=== PATIENT | male | born 1970 | race Caucasian/White ===

== ENCOUNTER 2016-08-17 22:14 | Emergency (ER) | payer SELFPAY ==
[2016-08-18] MEDS ORDERED: ASPIRIN 325 MG TABLET PO ONE (02:03)
[2016-08-18] MEDS ORDERED: ACETAMINOPHEN 325 MG TABLET PO ONE (02:11)
[2016-08-18] MEDS ORDERED: ACETAMINOPHEN 325 MG TABLET ONE (02:14)
[2016-08-18 02:32] LABS: ABSOLUTE LYMPHOCYTES (AUTO) 0.8 10^3/uL (0.5-4.7); BASOPHILS % (AUTO) 0.3 % (0-2); EOSINOPHILS % (AUTO) 0.1 % (0-6); HEMOGLOBIN 15.5 g/dL (13.5-17.0); HGB HCT DIFFERENCE 1.5; MEAN CORPUSCULAR HEMOGLOBIN 31.3 pg (27.0-33.4); MEAN CORPUSCULAR HGB CONC 34.4 g/dL (32.0-36.0); MEAN CORPUSCULAR VOLUME 91 fl (80-97); RED BLOOD COUNT 4.94 10^6/uL (4.35-5.55); RED CELL DISTRIBUTION WIDTH 14.1 % (11.5-14.0); SEGMENTED NEUTROPHILS % (AUTO) 85.6 % (42-78); WHITE BLOOD COUNT 12.8 10^3/uL (4.0-10.5)
[2016-08-18 02:43] LABS: ALANINE AMINOTRANSFERASE 37 U/L (21-72); ALBUMIN 4.4 g/dL (3.5-5.0); ALKALINE PHOSPHATASE 95 U/L (38-126); ANION GAP 12 (5-19); ASPARTATE AMINO TRANSFERASE 21 U/L (17-59); BILIRUBIN,DIRECT 0.2 mg/dL (0.0-0.4); BLOOD UREA NITROGEN 11 mg/dL (7-20); CALCIUM 9.3 mg/dL (8.4-10.2); CARBON DIOXIDE 24 mmol/L (22-30); CHLORIDE 98 mmol/L (98-107); CREATINE KINASE 101 U/L (55-170); CREATININE RESULT 0.85 mg/dL (0.52-1.25); GLUCOSE 108 mg/dL (75-110); POTASSIUM 4.5 mmol/L (3.6-5.0); SODIUM 134.1 mmol/L (137-145); TOTAL PROTEIN 7.3 g/dL (6.3-8.2)
[2016-08-18 02:54] LABS: CREATINE KINASE MB 0.45 ng/mL (<4.55)
[2016-08-18 02:55] LABS: TROPONIN I < 0.012 ng/mL
--- NOTE | 2016-08-18 03:13 | ER Document Report ---
ED General - General Chief Complaint: Cough Stated Complaint: WEAKNESS/COUGH/UNABLE TO STAY AWAKE Time Seen by Provider: 08/18/16 01:53 Notes: Patient is a 46-year-old male comes emergency department for chief complaint of feeling generally worse with weakness, cough, and fever since yesterday. 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 He denies shortness of breath, chest pain, headache, sore throat, abdominal pain, flank pain. He states he feels slightly lightheaded when he stands. Former smoker, history of NV with stents, denies other medical history. Patient does state that he is exposed to his nephew who was recently sick. TRAVEL OUTSIDE OF THE [place] IN LAST 30 DAYS: No - Related Data Allergies/Adverse Reactions: vancomycin [From Vancocin] Allergy (Verified 08/18/16 00:51) Home Medications: Current Home Medications Atorvastatin Calcium 80 mg PO QHS 08/18/16 [History] Lisinopril [Lisinopril] 5 mg PO DAILY 08/18/16 [History] Metoprolol Tartrate [Metoprolol Tartrate] 25 mg PO BID 08/18/16 [History] [place]-3 Fatty Acids/Fish Oil [Fish Oil 300 mg Softgel] 1 cap PO BID 08/18/16 [ History] Omeprazole Magnesium [Prilosec Otc] 20 mg PO DAILY 08/18/16 [History] Ticagrelor [Brilinta 90 mg Tablet] 90 mg PO BID 08/18/16 [History] Past Medical History - General Information source: Patient - Social History Smoking Status: Current Every Day Smoker Smoking Education Provided: Yes - <3 min Drug Abuse: None Lives with: Family Family History: Reviewed & Not Pertinent Patient has suicidal ideation: No Patient has homicidal ideation: No - Past Medical History Cardiac Medical History: Reports: Hx Hypercholesterolemia, Hx Hypertension Renal/ Medical History: Denies: Hx Peritoneal Dialysis GI Medical History: Reports: Hx Gastroesophageal Reflux Disease Past Surgical History: Reports: Hx Cardiac Catheterization - stent, Hx Cardiac Surgery, Hx Orthopedic Surgery - knee Review of Systems - Review of Systems Constitutional: See HPI EENT: No symptoms reported Cardiovascular: No symptoms reported Respiratory: See HPI Gastrointestinal: No symptoms reported Genitourinary: No symptoms reported Male Genitourinary: No symptoms reported Musculoskeletal: No symptoms reported Skin: No symptoms reported Hematologic/Lymphatic: No symptoms reported Neurological/Psychological: No symptoms reported Physical Exam - Vital signs Vitals: Temp Pulse Resp BP Pulse Ox 100.2 F 121 H 18 136/84 H 98 08/17/16 22:49 08/17/16 22:49 08/17/16 22:49 08/17/16 22:49 08/17/16 22:49 Interpretation: Normal - General General appearance: Appears well, Alert - HEENT Head: Normocephalic, Atraumatic Eyes: Normal Extraocular movements intact: Yes Eyelashes: Normal Pupils: PERRL Sinus: Normal Nasal: Normal Mouth/Lips: Normal Mucous membranes: Normal Pharynx: Normal Neck: Normal - Respiratory Respiratory status: No respiratory distress. No: Respiratory distress, Labored , Tachypnea Chest status: Nontender Breath sounds: Normal, Other - Congested sounding cough with a few coarse breath sounds and scattered rhonchi. No: Wheezing Chest palpation: Normal - Cardiovascular Rhythm: Regular, Tachycardia Heart sounds: Normal auscultation, S1 appreciated, S2 appreciated Murmur: No - Abdominal Inspection: Normal Distension: No distension Bowel sounds: Normal Tenderness: Nontender Organomegaly: No organomegaly - Back Back: Normal, Nontender - Extremities General upper extremity: Normal inspection, Nontender, Normal color, Normal ROM , Normal temperature General lower extremity: Normal inspection, Nontender, Normal color, Normal ROM , Normal temperature, Normal weight bearing. No: Sundar's sign - Neurological Neuro grossly intact: Yes Cognition: Normal Orientation: AAOx4 Thierry Coma Scale Eye Opening: Spontaneous [place] Coma Scale Verbal: Oriented Thierry Coma Scale Motor: Obeys Commands [place] Coma Scale Total: 15 Speech: Normal Motor strength normal: LUE, RUE, LLE, RLE Sensory: Normal - Psychological Associated symptoms: Normal affect, Normal mood - Skin Skin Temperature: Warm Skin Moisture: Dry Skin Color: Normal, Flushed Course - Re-evaluation Re-evalutation: Patient febrile, has congested sounding cough, a few scattered rhonchi and coarse breath sounds, clinically he appears to have pneumonia. CBC shows leukocytosis with no bandemia, shows elevation of neutrophils. Chemistry unremarkable, cardiac enzymes negative, EKG with no comparison appears to have right bundle branch block, this was reviewed with Dr. Mishra. Denying any chest pain specifically, just reports cough, fever, lack of energy. He states he feels much better after treatment with Tylenol, fever resolved, tachycardia resolved, vital signs normalized. No tachypnea, no hypoxia, no respiratory distress on exam Chest x-ray with no specific findings. Giving Rocephin, doxycycline, will treat for suspected pneumonia. Patient states he is ready to leave. Discussed treatment at home with antibiotics, follow-up, return precautions, patient states satisfaction and agreement. - Vital Signs Vital signs: Temp Pulse Resp BP Pulse Ox 99.7 F 100 18 121/76 94 08/18/16 03:52 08/18/16 03:52 08/18/16 03:52 08/18/16 03:52 08/18/16 03:52 - Laboratory Result Diagrams: 08/18/16 02:19 08/18/16 02:19 Laboratory results interpreted by me: 08/18/16 08/18/16 02:19 02:19 WBC 12.8 H RDW 14.1 H Seg Neutrophils % 85.6 H Lymphocytes % 6.0 L Absolute Neutrophils 11.0 H Sodium 134.1 L Discharge - Discharge Clinical Impression: Cough Fever Qualifiers: Fever type: unspecified Qualified Code(s): R50.9 - Fever, unspecified Fatigue Qualifiers: Fatigue type: unspecified Qualified Code(s): R53.83 - Other fatigue Condition: Stable Disposition: HOME, SELF-CARE Additional Instructions: Your workup tonight is consistent with pneumonia. Take the doxycycline antibiotic as prescribed to completion. Take tylenol for fever, hydrate, and rest. Stop smoking. Follow up with your Primary Care in the next several days. Return to the ED if you worsen in any way - difficulty breathing, chest pain, severe headache, etc. Prescriptions: Doxycycline Hyclate 100 mg PO BID #14 capsule Forms: Return to Work
--- NOTE | 2016-08-18 03:18 | RADIOLOGY REPORT (SQ) ---
EXAM DESCRIPTION: CHEST PA/LAT COMPLETED DATE/TIME: 08/18/2016 2:30 am REASON FOR STUDY: fever, cough COMPARISON: 03/06/2007 EXAM PARAMETERS: NUMBER OF VIEWS: two views TECHNIQUE: Digital Frontal and Lateral radiographic views of the chest acquired. RADIATION DOSE: NA LIMITATIONS: none FINDINGS: LUNGS AND PLEURA: Mild interstitial markings, increased-new. MEDIASTINUM AND HILAR STRUCTURES: No masses or contour abnormalities. HEART AND VASCULAR STRUCTURES: Heart normal size. No evidence for failure. BONES: Mild osteoarthritis. HARDWARE: None in the chest. OTHER: No other significant finding. IMPRESSION: Mild interstitial markings which may indicate mild pulmonary edema and/or chronic inters titial lung disease. TECHNICAL DOCUMENTATION: JOB ID: [id number] [employer]- All Rights Reserved
[2016-08-18] MEDS ORDERED: DOXYCYCLINE HYCLATE 100 MG TABLET PO ONE (03:44)
[2016-08-18] MEDS ORDERED: CEFTRIAXONE 1 GM/D5W RTU 50 ML IV ONE (03:44)
[2016-08-18 03:54] VITALS: BP 121/76
--- NOTE | 2016-08-18 13:47 | EKG REPORT ---
SEVERITY:- ABNORMAL ECG - SINUS TACHYCARDIA PROBABLE LEFT ATRIAL ABNORMALITY ANTERIOR INFARCT, POSSIBLY ACUTE : Confirmed by: Malissa Espinoza 18-Aug-2016 13:47:29
== END 2016-08-18 04:34 | disposition home or self-care (01) ==
LOC: ER 22:14
DX: R05 Cough (principal); R53.83 Other fatigue; R50.9 Fever, unspecified; R53.1 Weakness; R42 Dizziness and giddiness; R00.0 Tachycardia, unspecified; D72.828 Other elevated white blood cell count; I10 Essential (primary) hypertension; I25.2 Old myocardial infarction; F17.200 Nicotine dependence, unspecified, uncomplicated; Z98.61 Coronary angioplasty status; Z88.1 Allergy status to other antibiotic agents; Z71.6 Tobacco abuse counseling
CPT/HCPCS: 93005; 99285; 96365; 36415; 87040; 82553; 82550; 85025; 80053; 84484; 71020; 93010; J0696